=== PATIENT | male | born 1990 | race Caucasian/White ===

== ENCOUNTER → 2020-10-23 | Outpatient (CLI) | payer OTHER ==
[~2020-10-23] MED LIST: BACTRIM DS TAB1 EACH PO; IBU800 MG PO; KEFLEX CAP 500500 MG PO
== END ==
LOC: KOH-I 12:33
DX: M25.511 Pain in right shoulder (principal)
CPT/HCPCS: 73030; 73060

== ENCOUNTER 2020-12-15 16:10 | Emergency (ER) | payer OTHER ==
[~2020-12-15 16:10] MED LIST changes: -IBU800 MG PO
[2020-12-15] MEDS ORDERED: IBU800 MG PO (17:53)
== END 2020-12-15 18:30 | disposition home or self-care (01) ==
LOC: ER1 16:10
DX: M25.531 Pain in right wrist (principal); R20.2 Paresthesia of skin
CPT/HCPCS: 29125; 99283; J1885

== ENCOUNTER 2022-01-18 18:45 | Emergency (ER) | payer OTHER ==
[~2022-01-18 18:45] MED LIST changes: +IBU800 MG PO
[2022-01-18 19:37] LABS: HEMOGLOBIN 15.7 gm/dl (14.0-17.5); RED BLOOD COUNT 5.44 M/UL (4.20-5.50); WHITE BLOOD COUNT 12.3 K/UL (4.5-11.0)
== END 2022-01-18 22:30 | disposition left against medical advice (07) ==
LOC: ER1 18:45
PROVIDERS: Emergency Medicine
DX: R10.9 Unspecified abdominal pain (principal)
CPT/HCPCS: 80053; 81001; 85025; 99281